=== PATIENT | female | born 2000 | race Caucasian/White ===

== ENCOUNTER → 2021-08-31 11:49 | Outpatient (CLI) | payer OTHER, SELFPAY ==
--- NOTE | ~2021-08-31 | US_ITS ---
EXAMINATION: US pelvic complete EXAM DATE: 08/31/2021 12:01 INDICATION: Quick satiety . TECHNIQUE: Pelvic transabdominal sonogram was performed. There are multiple grayscale and Doppler im ages available for interpretation. There is no prior study for comparison. FINDINGS: Uterus measures 7.4 x 3.5 x 4.8 cm, and is morphologically normal. Endometrial stripe linette sures 2 mm, within normal limits. There is no free pelvic fluid. Right adnexa: The ovary measures 2.3 x 1.5 x 3.1 cm and is morphologically normal. Ovarian vascular f low confirmed. Left adnexa: The ovary measures 2.2 x 1.7 x 2.4 cm and is morphologically normal. Ovarian vascular fl ow confirmed. IMPRESSION: 1. Unremarkable pelvic ultrasound exam. Reviewed, dictated and finalized at location A. [employer]
== END ==
PROVIDERS: PCP Family Medicine; Visit Provider Nurse Practitioner
DX: R68.81 Early satiety (principal)
CPT/HCPCS: 76856